=== PATIENT | female | born 1990 | race Caucasian/White ===

== ENCOUNTER 2017-11-02 04:15 | Emergency (ER) | payer SELFPAY ==
[~2017-11-02] VITALS: Ht 172.7 cm; Wt 49.0 kg
--- NOTE | 2017-11-02 05:05 | Emergency Room Report ---
History of Present Illness General Chief Complaint: Abdominal Pain Source: Patient Present Illness HPI 27-year-old female with no sig pmhx p/w nausea vomiting diarrhea epigastric abd pain for for hours. Patient states pain started after she ate bad sushi, pain is localized to all over abdomen but mostly in the upper epigastric region Pt reports n/v, 4 episodes of nbnb vomiting, 4 episodes of watery non bloody diarrhea. Denies black or bloody stools. Denies fever, chills. No hx of abdominal surgeries. No hx of endoscopies/colonoscopies. Allergies: Coded Allergies: No Known Allergies (Unverified , 11/02/17) Patient History Past Medical History: see triage record Past Surgical History: none Pertinent Family History: none Reviewed Nursing Documentation: PMH: Agreed; PSxH: Agreed Nursing Documentation-PMH Past Medical History: No Stated History Review of Systems All Other Systems: negative except mentioned in HPI Physical Exam Vital Signs Date Time Temp Pulse Resp B/P (MAP) Pulse Ox O2 Delivery O2 Flow Rate FiO2 11/02/17 04:09 97.9 87 16 119/88 97 Room Air 97.9 Sp02 EP Interpretation: reviewed, normal General Appearance: alert, GCS 15, non-toxic, moderate distress Head: normocephalic, atraumatic Eyes: bilateral eye normal inspection, bilateral eye PERRL, bilateral eye EOMI ENT: normal ENT inspection, normal pharynx, normal voice, moist mucus membranes Neck: normal inspection, full range of motion, supple Respiratory: normal inspection, lungs clear, normal breath sounds, no respiratory distress, no retraction, no wheezing, speaking full sentences, chest symmetrical Cardiovascular #1: normal inspection, regular rate, rhythm, no edema, normal capillary refill Cardiovascular #2: 2+ radial (R), 2+ radial (L) Gastrointestinal: normal inspection, non tender, soft, non-distended, no guarding Musculoskeletal: normal inspection, back normal, normal range of motion, non- tender Neurologic: normal inspection, alert, oriented x3, responsive, motor strength/ tone normal, sensory intact, normal gait, speech normal Psychiatric: normal inspection, judgement/insight normal, memory normal Skin: normal inspection, normal color, no rash, warm/dry, well hydrated, normal turgor Medical Decision Making Diagnostic Impression: Primary Impression: Nausea vomiting and diarrhea ER Course 27-year-old female with nausea vomiting diarrhea Differential Diagnosis: Gastritis, gastroenteritis, cholecystitis, appendicitis, diverticulitis, UTI/ pyelo At this time abdomen is soft nontender, not likely to have acute intra- abdominal surgical pathology, will hold CT for now. Plan: Basic labs, ua Zofran, IVF ER course: Patient has remained stable during ED stay. no further episodes of vomiting Patient has been ambulatory around the emergency room, has been incredibly concerned because she has no insurance, has been asking exactly how much money the ER visit will cost. She states that she wanted to cancel all the laboratory results because she does not want it and she does not want to pay for it. We advised the patient that she is not getting her full workup without obtaining the labs, and that I will not be able to fully evaluate if there is any life threatening illness. She states that she only wants the medications and then to leave. We advised patient to be a translation that we are not able to fully perform our workup so she would be leaving AGAINST MEDICAL ADVICE Disposition: left AMA Please note that this Emergency Department Report was dictated using [employer] floater technology software, occasionally this can lead to erroneous entry secondary to interpretation by the dictation equipment Last Vital Signs Date Time Temp Pulse Resp B/P (MAP) Pulse Ox O2 Delivery O2 Flow Rate FiO2 11/02/17 04:09 97.9 87 16 119/88 97 Room Air 97.9 Disposition: AGAINST MEDICAL ADVICE Condition: Improved Patient Instructions: Abdominal Pain, Adult Govind Kirby M.D. Nov 02, 2017 05:05
[2017-11-02 06:21] VITALS: BP 119/88
== END 2017-11-02 06:21 | disposition left against medical advice (07) ==
LOC: EDBD 04:15 → EMR 04:35
DX: R11.2 Nausea with vomiting, unspecified (principal); R19.7 Diarrhea, unspecified; R10.13 Epigastric pain
CPT/HCPCS: 96374; 96375; 99284; J2405